=== PATIENT | female | born 1995 | race Caucasian/White ===

== ENCOUNTER 2022-11-30 00:32 | Day surgery (SDC) | payer BC, SELFPAY ==
[2022-11-17 12:59] VITALS: BMI 22.7
[2022-11-30 07:07] VITALS: BP 116/71; PULSE 84; RESP 14; TEMP 36.6; O2SAT 100
[2022-11-30] MEDS: LACTATED RINGERS 1,000 ML 150 ML IV CONT (07:25)
--- NOTE | 2022-11-30 08:15 | P.PNAN_ITS ---
Anes - Initial Pre Proc Eval Procedure: Operation Date: 11/30/22 08:30 Proposed Procedures p Esophagogastroduodenoscopy & Colonoscopy - Noe Marcial MD Date/Time: 11/30/22 08:15 Surgeon: Noe Marcial MD Pre Op Diagnosis: Change in bowel habit,Left lower quadrant pain Patient Data Age: 27 Gender: F Height: 1.7 m Weight: 64.7 kg Last Vital Signs Temp 98 F 11/30/22 07:07 Pulse 84 11/30/22 07:07 Resp 14 11/30/22 07:07 BP 116/71 11/30/22 07:07 Pulse Ox 100 11/30/22 07:07 O2 Del Method Room Air 11/30/22 07:07 Allergies Allergy/AdvReac Type Severity Reaction Status Date / Time No Known Allergies Allergy Verified 11/30/22 07:06 Home Medications Medication Instructions Recorded Confirmed Type hyoscyamine sulfate 0.125 mg 0.125 mg PO .every 6 hours PRN 11/17/22 11/17/22 History sublingual tablet (Levsin/SL) Spasms Patient hx anesthesia problems: none Family hx anesthesia problems: none Results Review: All pre-operative results and documents have been reviewed as part of the pre- operative evaluation. [facility] Past Medical History Medical History (Updated 10/28/22 @ 08:12 by Neris Felton, [employer]) Abdominal distension Altered bowel habits Bloating Chronic LLQ pain Chronic nausea Family history of cancer in father Family hx of colon cancer Social History Social History Smoking status: Never smoker Alcohol intake: current Drinks per week: 4 Substance use: never Substance use type: does not use Living arrangements: with family Spiritual care concerns: No Anes - Eval Final PreProcedure Day of Procedure 11/30/22 08:15 Patient weight: normal Heart: regular rate and rhythm Lungs: clear to auscultation Airway: Mallampati scale class II Neurological: alert and oriented Last oral intake: >/= 8 hours ASA classification: II Emergent: no Anesthetic plan: proceed Anesthesia type and monitoring: general GIVS and standard monitoring Results Review: All pre-operative results and documents have been reviewed as part of the pre- operative evaluation. Informed Consent: The patient's anesthetic plan and its attendant risks and benefits were discussed with the patient/family/POA. Questions were solicited and answers provided to the satisfaction of the patient/family/POA.
--- NOTE | 2022-11-30 08:39 | PM.HPGS ---
History of Present Illness History of Present Illness Consent: Risks, benefits, and alternatives have been discussed and questions answered. Patient agrees to proceed with procedure. Chief complaint: Change in bowel habit,Left lower quadrant pain Narrative: Anyia Urbano is a 27 year old female here for egd and colonoscopy, she has left lower quadrant abdominal pain, inconsistent bowel habits.?Family history of small intestinal neuroendocrine tumor in her father and colon cancer and paternal grandfather and paternal great grandmother.? She states for the last 5 years she has had issues with abdominal pain? Review of Systems Constitutional: Constitutional: Denies headache(s) and Denies weakness Eyes: Eyes: Denies blurry vision ENT: Reports Normal hearing present, Denies headache(s) and Denies neck pain Cardiovascular: Cardiovascular: Denies chest pain and Denies dyspnea Respiratory: Respiratory: Denies dyspnea Gastrointestinal: Gastrointestinal: Reports no additional gastrointestinal complaints Genitourinary: Genitourinary: Denies dysuria Musculoskeletal: Musculoskeletal: Denies neck pain Integumentary/Breasts: Skin/Breast: Denies dry skin Neurologic: Reports Normal hearing present, Denies headache(s) and Denies weakness Psychiatric: Psychiatric: Denies anxiety Endocrine: Endocrine: Denies change in body appearance Hematologic/Lymphatic: Hematologic/Lymphatic: Denies easy bleeding Allergic/Immunologic: Allergic/Immunologic: Denies urticaria PMFSH Past Medical History Medical History (Updated 10/28/22 @ 08:12 by Neris Felton, [employer]) Abdominal distension Altered bowel habits Bloating Chronic LLQ pain Chronic nausea Family history of cancer in father Family hx of colon cancer Social History Social History Smoking status: Never smoker Alcohol intake: current Drinks per week: 4 Substance use: never Substance use type: does not use Living arrangements: with family Spiritual care concerns: No Meds Home Medications and Allergies Home Medications Medication Instructions Recorded Confirmed Type hyoscyamine sulfate 0.125 mg 0.125 mg PO .every 6 hours PRN 11/17/22 11/17/22 History sublingual tablet (Levsin/SL) Spasms Allergies Allergy/AdvReac Type Severity Reaction Status Date / Time No Known Allergies Allergy Verified 11/30/22 07:06 Vital Signs Vital Signs - 24 hr 11/30/22 07:07 Temperature 98 F Pulse Rate 84 Respiratory Rate 14 Blood Pressure 116/71 Pulse Oximetry 100 Oxygen Delivery Room Air Exam Const: General: comfortable and no acute distress HENMT: Face/Nose/Sinus: Normal nares present Eyes: General: appearance normal, both eyes and all related structures Neck: Neck: no JVD Resp: Auscultation: clear to auscultation bilaterally Cardio: Rate: regular rate Rhythm: regular rhythm GI: Inspection: non-distended GI Palp: Yes Soft to palpation Skin: General skin exam: normal color Neuro: General: gait normal Speech: normal speech Extrem: General: normal to inspection Psych: Mental Status: mental status grossly normal Assessment and Plan Assessment and plan (1) Chronic nausea: Code(s): R11.0 - Nausea Status: Acute Assessment and Plan: egd with bx (2) Chronic LLQ pain: Code(s): R10.32 - Left lower quadrant pain; G89.29 - Other chronic pain Status: Acute Assessment and Plan: assess with colonoscopy (3) Family history of cancer in father: Code(s): Z80.9 - Family history of malignant neoplasm, unspecified Status: Acute
--- NOTE | 2022-11-30 08:48 | SUR.OPER ---
EGD start 845 end 848, Colonoscopy start 852
[2022-11-30 09:05] VITALS: BP 100/61; PULSE 69; RESP 19; O2SAT 100
[2022-11-30 09:15] VITALS: BP 106/66; PULSE 64; RESP 23; O2SAT 99
[2022-11-30 09:25] VITALS: BP 113/78; PULSE 66; RESP 15; O2SAT 100
== END 2022-11-30 09:28 | disposition home or self-care (01) ==
PROVIDERS: Visit Provider Internal Medicine Gastroenterology
PROC: 0DJ08ZZ Inspection of Upper Intestinal Tract, Via Natural or Artificial Opening Endoscopic (ICD-10-PCS; CPT 43235; principal; 2022-11-30 08:30)
DX: K29.50 Unspecified chronic gastritis without bleeding (principal); R19.4 Change in bowel habit; Z80.0 Family history of malignant neoplasm of digestive organs
CPT/HCPCS: 45378; 43239; 88305; J2405; J2704; J3010; J7120

== ENCOUNTER 2022-12-26 07:45 | Outpatient (CLI) | payer BC, SELFPAY ==
--- NOTE | ~2022-12-26 | CT_ITS ---
CT of the Abdomen and Pelvis: Indication: Abdominal pain Technique: 2.5 mm axial scans were obtained through the abdomen and pelvis following intravenous adm inistration of 100 cc of Omnipaque 350. Dose reduction technique was used on this scan by utilizing a utomated exposure control and iterative reconstruction technique. The dose-length product (DLP) was 2 67.00 mGy-cm. Findings: Scans through the lung bases are unremarkable. The liver, spleen, pancreas, gallbladder, adrenals and kidneys are within normal limits. No evidence of aortic aneurysm. No lymphadenopathy. No bowel obstruction or bowel wall thickening. There is no evidence to suggest acute appendicitis. Images through the pelvis were performed. Urinary bladder unremarkable. IUD in place. No adnexal mass seen. No ascites. Impression: No significant abnormalities seen. Reviewed, dictated and finalized at [facility]. [employer] Impression: No significant abnormalities seen.
== END 2022-12-26 07:46 | disposition home or self-care (01) ==
PROVIDERS: Visit Provider Nurse Practitioner
DX: G89.29 Other chronic pain (principal); R10.9 Unspecified abdominal pain
CPT/HCPCS: 74177; Q9967

== ENCOUNTER → 2023-02-07 14:16 | Outpatient (CLI) | payer BC, SELFPAY ==
--- NOTE | ~2023-02-07 | US_ITS ---
EXAMINATION: US pelvic complete DATE: 02/07/2023 14:52 INDICATION: Pelvic pain Comparison:CT dated 12/26/2022 TECHNIQUE: Multiple transabdominal sonographic images of the pelvis performed. FINDINGS: The uterus measures 7.9 x 3.5 x 5.2 cm. IUD is identified in the endometrium. The endometri al complex measures 6 mm. The right ovary measures 2.2 x 1.7 x 3.5 cm and the left ovary measures 4.2 x 2.7 x 3.4 cm. There is a simple cyst of the left ovary measuring 2.7 cm. There are small follicles in each ovary. Normal dop pler signal in both ovaries. There is no free fluid in the pelvis. There are no abnormal masses seen on either side. IMPRESSION: 1. Left ovarian cyst measuring 2.7 cm. Reviewed, dictated and finalized at location L. MANAGER
== END ==
PROVIDERS: PCP Obstetrics & Gynecology Gynecology; Visit Provider Nurse Practitioner
DX: R10.2 Pelvic and perineal pain (principal); N83.202 Unspecified ovarian cyst, left side
CPT/HCPCS: 76856